=== PATIENT | female | born 1940 | race Caucasian/White ===

== ENCOUNTER 2016-10-05 08:03 | Outpatient (CLI) | payer MEDICARE ==
[2016-10-05] VITALS (16 sets, daily range): BP systolic 114–173; BP diastolic 57–107; PULSE 83–107; RESP 14–35; TEMP 97–98; O2SAT 95–100; Ht 162.6 cm; Wt 93.7 kg
[~2016-10-05] VITALS: Ht 162.6 cm; Wt 93.7 kg
[2016-10-05] MEDS ORDERED: OMEG300C PO (08:09)
[2016-10-05] MEDS ORDERED: MELA3TAB30 PO (08:09)
[2016-10-05] MEDS ORDERED: SIMV20TA6 PO (08:09)
[2016-10-05] MEDS ORDERED: MULT-933 PO (08:09)
--- NOTE | 2016-10-05 08:30 | NUR ---
ADMISSION PT ADMITTED TO ROOM 126 VIA AMBULATION AT 0815. PT IS A&OX3, UP WITH NO ASSIST, LOW FALL UNTIL AFTER PROCEDURE. PT ORIENTED TO ROOM AND BED. PT SIGNED CONSENT FOR SHANITA AND EDUCATED ON THE PROCESS. DAUGHTER IS AT BEDSIDE.
[2016-10-05 08:43] LABS: BASOPHILS % (AUTO) 0.5 % (0-2); EOSINOPHILS # (AUTO) 0.2 T/MM3 (0-0.5); EOSINOPHILS % (AUTO) 2.8 % (0-4); HCT - HEMATOCRIT 43.1 % (36-46); HGB - HEMOGLOBIN 14.4 GM/DL (12-16); LYMPHOCYTES # (AUTO) 1.7 T/MM3 (1-4.8); LYMPHOCYTES % (AUTO) 28.3 % (23-45); MEAN CORPUSCULAR HGB 29.8 UUG (26-34); MEAN CORPUSCULAR HGB CONC(MCHC 33.4 GM/DL (31-37); MEAN CORPUSCULAR VOLUME 89.2 UM3 (80-100); MEAN PLATELET VOLUME 10.2 UM3 (9.4-12.4); MONOCYTES # (AUTO) 0.4 T/MM3 (0-0.8); MONOCYTES % (AUTO) 6.7 % (0-9.0); NEUTROPHILS #(AUTO)-ABSOLUTE 3.7 T/MM3 (1.8-7.7); NEUTROPHILS % (AUTO) 61.7 % (33-66); RED BLOOD COUNT 4.83 M/MM3 (4.00-5.20)
[2016-10-05 08:48] LABS: INR 1.06 (0.76-1.04); PROTHROMBIN TIME 11.6 SEC (9.31-12.49)
[2016-10-05] MEDS ORDERED: SALINE FLUSH 10ml SYRINGE ONE (08:51)
[2016-10-05 08:55] LABS: ALBUMIN 4.3 G/DL (3.5-5.0); ALBUMIN/GLOBULIN RATIO 1.5 RATIO (1.1-2.2); ALKALINE PHOSPHATASE 52 U/L (38-126); ALT (SGPT) 37 U/L (9-52); ANION GAP 12 MEQ/L (5-15); AST (SGOT) 23 U/L (14-36); BUN/CREATININE RATIO 16 RATIO (6-26); CALCIUM 8.7 MG/DL (8.4-10.2); CHLORIDE 109 MEQ/L (98-107); CO2 - CARBON DIOXIDE 27 MEQ/L (22-30); CREATININE 0.7 MG/DL (0.7-1.2); GLOMERULAR FILTRATION RATE 82; GLUCOSE 98 MG/DL (65-110); MAGNESIUM 2.2 MG/DL (1.6-2.3); POTASSIUM 3.7 MEQ/L (3.6-5); SODIUM 148 MEQ/L (134-144); TOTAL PROTEIN 7.1 G/DL (6.3-8.2)
[2016-10-05 09:24] LABS: THYROID STIM HORMONE-TSH 1.65 MIU/L (0.47-4.68)
--- NOTE | 2016-10-05 09:41 | NUR ---
CM CM VISITED PT/DAUGHTER. CM EXPLAINED ROLE AND PROVIDED CONTACT INFORMATION. PT PLANS TO RETURN HOME POST PROCEDURE. PT DENIES NEEDS. PT IS AWARE TO CONTACT CM IF NEEDS ARISE.
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
[2016-10-05] MEDS ORDERED: BISACODYL 5 MG E.C. TABLET PO PRN (13:45)
[2016-10-05] MEDS ORDERED: METOCLOPRAMIDE 10mg/2ml INJECTION IV PRN (13:45)
[2016-10-05] MEDS ORDERED: MAG-AL + SIM LIQUID 30 ML UDC PO PRN (13:45)
[2016-10-05] MEDS ORDERED: BISACODYL 10 MG SUPPOSITORY RECTALLY PRN (13:45)
[2016-10-05] MEDS ORDERED: NITROGLYCERIN 0.4 MG SUBLINGUAL TABLET SL PRN (13:45)
[2016-10-05] MEDS ORDERED: LORAZEPAM 1 MG TABLET PO PRN (13:45)
[2016-10-05] MEDS ORDERED: MILK OF MAGNESIA 30 ML SUSP PO PRN (13:45)
[2016-10-05] MEDS ORDERED: PROMETHAZINE 25 MG INJECTION IV PRN (13:45)
[2016-10-05] MEDS ORDERED: LORAZEPAM 2 MG/ML INJECTION IV PRN (13:45)
[2016-10-05] MEDS ORDERED: ACETAMINOPHEN 325 MG TABLET PO PRN (13:45)
--- NOTE | 2016-10-05 14:59 | NUR ---
DISMISSAL PT DISMISSED TO HOME VIA AMBULATION AT 1457. PT BELONGINGS PACKED, GO HOME INSTRUCTIONS GIVEN, IVL PULLED AND PT DRESSED. PT LEFT WITH DAUGHTER.
[2016-10-05] MEDS ORDERED: MIDAZOLAM 2mg/2ml INJECTION IV ONE (15:14)
[2016-10-05] MEDS ORDERED: FENTANYL 100mcg/2ml INJECTION IV ONE (15:14)
--- NOTE | 2016-10-06 20:26 | TEEF ---
DATE OF PROCEDURE 10/05/2016 INDICATIONS Severe mitral regurgitation. Patient is anticipated to have mitral valve surgery. PROCEDURE After indications, alternatives, risks and benefits of the procedure were fully discussed with the patient in detail, she agreed to proceed. He received IV sedation of Versed and fentanyl. Please refer to nursing notes. She received Cetacaine spray to the oropharynx. I advanced the Omni probe into the stomach. Transgastric, low and mid transesophageal images of good quality were obtained. The procedure was well tolerated. There were no immediate complications. FINDINGS 1. CARDIAC CHAMBERS: The left atrium is enlarged. All other cardiac chambers appear normal in size. The visualized portion of the thoracic aorta exhibits only scattered minor atherosclerotic plaque. No aneurysm or dissection. Interatrial septum appears intact. No demonstrable shunts on color flow Doppler and bubble study. RV size and contractility appear normal. 2. LEFT VENTRICLE: Normal LV size and contractility. Hyperdynamic left ventricle ejection fraction of 80%. 3. VALVES: The mitral valve exhibits redundancy. Very mild sclerosis. Marked prolapse of the posterior leaflet with what appears to be ruptured tendon. This is allowing a highly eccentric jet of mitral regurgitation that is directed anteriorly. On my view the two leaflet coaptation appears adequate to make this picture more of a prolapse rather than a true flail leaflet. The mitral regurgitation jet is clearly severe and wraps around the anterior/anterolateral wall of the left atrium, "hugging" those daly. There is no other significant valvular dysfunction present. Trivial whiff of tricuspid regurgitation is intermittently seen. Trace aortic regurgitation is seen as a tiny central jet. I don't see any vegetation on the mitral valve or any other valves. Left atrial appendage size and contractility appear normal. No demonstrable clots or smoke sign. No pericardial effusion. IMPRESSION 1. Left atrial enlargement. 2. Hyperdynamic left ventricle. Ejection fraction 80%. 3. Severe mitral regurgitation. Highly eccentric jet that is directed anteriorly appears to be related to posterior mitral valve leaflet with a ruptured tendon. 4. Minor sclerotic changes of the aortic valve. 5. Mild mitral annular calcification considered normal for patient's age. 6. Mild irregular atherosclerotic plaque is noted in the aortic arch. [facility]
== END 2016-10-05 14:57 | disposition home or self-care (01) ==
LOC: IMA 08:03 → SRG 08:06 → IMA 14:57
PROVIDERS: ATTEND Internal Medicine Cardiovascular Disease
DX: I34.0 Nonrheumatic mitral (valve) insufficiency (principal); E78.5 Hyperlipidemia, unspecified; F41.1 Generalized anxiety disorder; F41.0 Panic disorder [episodic paroxysmal anxiety]; I70.0 Atherosclerosis of aorta; R93.1 Abnormal findings on diagnostic imaging of heart and coronary circulation
CPT/HCPCS: 36415; 80053; 83735; 84439; 84443; 85025; 85610; 93312; 93320; 93325; J2250; J3010

== ENCOUNTER 2016-10-07 07:26 | Outpatient (CLI) | payer MEDICARE ==
[2016-10-05 08:31] VITALS: BMI 35.5
[2016-10-05 08:47] VITALS: BP 167/78; PULSE 87; RESP 15; TEMP 98; O2SAT 98
[~2016-10-07] VITALS: Ht 162.6 cm; Wt 63.1 kg
[2016-10-07] VITALS (15 sets, daily range): BP systolic 114–162; BP diastolic 56–80; PULSE 71–98; RESP 12–20; TEMP 98–98.2; O2SAT 94–99; Ht 162.6 cm; Wt 63.1 kg
[~2016-10-07 07:26] MED LIST: MULT-933 PO; OMEG300C PO; SIMV20TA6 PO
--- NOTE | 2016-10-07 07:40 | NUR ---
ADMIT PT ADMITTED TO ROOM 122 AT THIS TIME VIA AMBULATORY STATUS. PT ALERT AND ORIENTED AT THIS TIME. PT REPOSITIONED SELF IN BED. WILL CONTINUE TO MONITOR.
[2016-10-07] MEDS ORDERED: SALINE FLUSH 10ml SYRINGE IVF PRN (07:45)
[2016-10-07] MEDS ORDERED: FENTANYL 100mcg/2ml INJECTION ONE (08:23)
[2016-10-07] MEDS ORDERED: VERAPAMIL 5mg/2ml INJECTION IV ONE (08:24)
[2016-10-07] MEDS ORDERED: MIDAZOLAM 2mg/2ml INJECTION ONE ×2 (08:24→10:10)
[2016-10-07] MEDS ORDERED: NITROGLYCERIN 50mg/10ml INJECTION IV ONE (08:24)
[2016-10-07] MEDS ORDERED: HEPARIN 1,000units in NS 500ml BAG IV ONE (08:25)
[2016-10-07] MEDS ORDERED: LIDOCAINE 1% (10mg/ml) 30ml SDV ONE (08:25)
[2016-10-07] MEDS ORDERED: IOHEXOL 350mg/ml 200ml BOTTLE ONE (08:30)
--- NOTE | 2016-10-07 08:30 | NUR ---
TO [facility] PT TRANSPORTED TO [facility] AT THIS TIME VIA CART AND ACCOMPANIED BY BITA GA RN. PT VOIDED PRIOR TO TRANSFER. VITAL SIGNS STABLE ON ROOM AIR. DAUGHTER ANGEL PRESENT UPON TRANSFER. INFORMED CONSENT OBTAINED. WILL CONTINUE TO MONITOR CLOSELY.
[2016-10-07 08:38] LABS: BASOPHILS % (AUTO) 0.4 % (0-2); EOSINOPHILS # (AUTO) 0.1 T/MM3 (0-0.5); EOSINOPHILS % (AUTO) 1.5 % (0-4); HCT - HEMATOCRIT 41.9 % (36-46); HGB - HEMOGLOBIN 14.2 GM/DL (12-16); LYMPHOCYTES # (AUTO) 1.6 T/MM3 (1-4.8); LYMPHOCYTES % (AUTO) 29.3 % (23-45); MEAN CORPUSCULAR HGB 30.7 UUG (26-34); MEAN CORPUSCULAR HGB CONC(MCHC 33.9 GM/DL (31-37); MEAN CORPUSCULAR VOLUME 90.7 UM3 (80-100); MEAN PLATELET VOLUME 10.3 UM3 (9.4-12.4); MONOCYTES # (AUTO) 0.4 T/MM3 (0-0.8); MONOCYTES % (AUTO) 7.3 % (0-9.0); NEUTROPHILS #(AUTO)-ABSOLUTE 3.3 T/MM3 (1.8-7.7); NEUTROPHILS % (AUTO) 61.5 % (33-66); RED BLOOD COUNT 4.62 M/MM3 (4.00-5.20); WBC - WHITE BLOOD COUNT 5.4 T/MM3 (4.5-11.0)
[2016-10-07 08:48] LABS: ALBUMIN 4.3 G/DL (3.5-5.0); ALBUMIN/GLOBULIN RATIO 1.7 RATIO (1.1-2.2); ALKALINE PHOSPHATASE 54 U/L (38-126); ALT (SGPT) 35 U/L (9-52); ANION GAP 10 MEQ/L (5-15); AST (SGOT) 29 U/L (14-36); BUN/CREATININE RATIO 14 RATIO (6-26); CALCIUM 9.1 MG/DL (8.4-10.2); CHLORIDE 108 MEQ/L (98-107); CO2 - CARBON DIOXIDE 27 MEQ/L (22-30); CREATININE 0.8 MG/DL (0.7-1.2); GLOMERULAR FILTRATION RATE 70; GLUCOSE 103 MG/DL (65-110); POTASSIUM 4.1 MEQ/L (3.6-5); SODIUM 145 MEQ/L (134-144); TOTAL PROTEIN 6.8 G/DL (6.3-8.2)
[2016-10-07] MEDS ORDERED: NITROGLYCERIN 0.4 MG SUBLINGUAL TABLET ONE (10:14)
--- NOTE | 2016-10-07 10:43 | NUR ---
ABBEY CM ATTEMPTED TO VISIT PT AT PROCEDURE. CM PROVIDED CONTACT INFORMATION AT BEDSIDE AND WROTE NAME ON BOARD. NURSE AWARE TO CONTACT CM IF NEEDS ARISE.
--- NOTE | 2016-10-07 10:52 | NUR ---
RETURN PT RETURNED TO ROOM 122 AT THIS TIME VIA CART. PT TRANSFERRED SELF FROM CART TO BED. HOB ELEVATED. BED ALARM ON. SIDE RAILS UP X2. DAUGHTER PRESENT IN ROOM UPON RETURN. PT AWAKE AND ALERT. VITAL SIGNS STABLE ON ROOM AIR. WILL CONTINUE TO MONITOR.
[2016-10-07] MEDS ORDERED: NORMAL SALINE 1,000 ML IV SCH (11:00)
[2016-10-07 11:03] LABS: TIDAL VOL.VENT ABG 2 ML (0-1200)
[2016-10-07 11:03] LABS: VBG TOTAL CO2 22 MEQ/L
[2016-10-07] MEDS ORDERED: MAG-AL + SIM LIQUID 30 ML UDC PO PRN ×2 (13:30→13:45)
[2016-10-07] MEDS ORDERED: BISACODYL 10 MG SUPPOSITORY RECTALLY PRN ×2 (13:30→13:45)
[2016-10-07] MEDS ORDERED: METOCLOPRAMIDE 10mg/2ml INJECTION IV PRN ×2 (13:30→13:45)
[2016-10-07] MEDS ORDERED: MORPHINE SULFATE 4 MG SYRINGE IV PRN ×4 (13:30→13:45)
[2016-10-07] MEDS ORDERED: ONDANSETRON 4mg/2ml INJECTION IV PRN ×2 (13:30→13:45)
[2016-10-07] MEDS ORDERED: ATROPINE 1 MG/ML VIAL IV PRN ×2 (13:30→13:45)
[2016-10-07] MEDS ORDERED: LORAZEPAM 2 MG/ML INJECTION IV PRN ×2 (13:30→13:45)
[2016-10-07] MEDS ORDERED: NITROGLYCERIN 0.4 MG SUBLINGUAL TABLET SL PRN ×2 (13:30→13:45)
[2016-10-07] MEDS ORDERED: PROMETHAZINE 25 MG INJECTION IV PRN ×2 (13:30→13:45)
[2016-10-07] MEDS ORDERED: MILK OF MAGNESIA 30 ML SUSP PO PRN ×2 (13:30→13:45)
[2016-10-07] MEDS ORDERED: HYDROCODONE/APAP 5 mg/325 mg TABLET PO PRN ×2 (13:30→13:45)
[2016-10-07] MEDS ORDERED: LORAZEPAM 1 MG TABLET PO PRN (13:30)
[2016-10-07] MEDS ORDERED: ACETAMINOPHEN 325 MG TABLET PO PRN ×2 (13:30→13:45)
[2016-10-07] MEDS ORDERED: BISACODYL 5 MG E.C. TABLET PO PRN ×2 (13:30→13:45)
[2016-10-07] MEDS ORDERED: ATEN25TA PO (13:31)
[2016-10-07] MEDS ORDERED: ASPI-557 PO (13:31)
[2016-10-07] MEDS ORDERED: LORAZEPAM 0.5 MG TABLET PO PRN (13:45)
--- NOTE | 2016-10-07 14:33 | NUR ---
DISCHARGE PT DISCHARGED TO HOME AT THIS TIME IN THE COMPANY OF HER DAUGHTER. AFTER ALL AIR REMOVED FROM PT'S TR BAND AND NO S/S OF BLEEDING FROM RIGHT RADIAL ACCESS SITE, GAUZE AND TEGADERM DRESSING APPLIED TO SITE. SPLINT REMAINS IN PLACE TO RIGHT WRIST. DISCHARGE INSTRUCTIONS INCLUDING DIET, ACTIVITY, MEDICATIONS, REPORTABLE S/S, [facility] TRANS RADIAL HEART CATH INSTRUCTIONS AND FOLLOW UP APPOINTMENTS GIVEN AND REVIEWED WITH PATIENT. NEW PRESCRIPTION FOR ATENOLOL SENT ELECTRONICALLY TO PT'S PREFERRED PHARMACY. PT VERBALIZED UNDERSTANDING OF THESE INSTRUCTIONS. IVL DISCONTINUED. ARMBAND REMOVED.
[2016-10-07] MEDS ORDERED: SIMVASTATIN 20 MG TABLET PO SCH (22:00)
[2016-10-08] MEDS ORDERED: OMEGA-3 ACID ESTERS 1 G CAPSULE PO SCH (09:00)
[2016-10-08] MEDS ORDERED: MULTIVITAMIN PLAIN TABLET PO SCH (09:00)
--- NOTE | 2016-10-08 10:40 | CVPROF ---
DATE 10/07/2016 PROCEDURE PERFORMED Transbrachial right heart catheterization. Transradial left heart catheterization. LV gram. Coronary angiogram. INDICATION Severe mitral regurgitation. The patient has dyslipidemia. NARRATIVE OF PROCEDURE After indications, alternatives, risks and benefits of the procedure were fully discussed with the patient in detail, she agreed to proceed. She was brought to the cardiac cath laboratory, received IV sedation, Versed and fentanyl. Please refer to nursing notes for exact amount given. Injected lidocaine 1% in the right wrist. I inserted a 6-Irish slender sheath. Sidearm was aspirated and flushed. Interarterial drug combo was given per protocol. Went ahead and started off with a [employer] trap catheter. Initially the micropuncture wire stopped in the forearm but going back with the table wire advanced easily without any resistance. Then there was an area of tortuosity in the subclavian artery that remained a problem throughout the procedure. Required using an exchange length wire and, due to catheter shape, changed multiple catheters. Even going back later with a 4-Irish multipurpose catheter, it was difficult to advance over a table wire, so I gave sublingual nitroglycerin to relieve any possible spasm in the arm. That did not help and so I pulled that out and exchanged to an interventional guide, eRAD, with a large lumen. This allowed smooth advancement to the heart. Left heart catheterization and LV gram were performed. Procedure was well tolerated. There was no immediate complication. Multiple projection images were taken to examine carefully the LAD lesion. There was no immediate complication. Procedure was well tolerated. A TR Band was deployed for hemostasis and manual pressure to the brachial venous site. Hemodynamics: LV pressure of 97/0 mmHg. EDP of 2-4 mmHg (gave IV fluid bolus at that point.) RA pressure 4/2 with a mean of 2 mmHg. RV 18/0. EDP of 1. PA 18/7, mean of 11 mmHg. 02 sat of 63%. A/O pressure 127/57, mean of 116 mmHg. PCWP 4/4 with a mean of 4 mmHg. O2 sat of 94% arterial, 63% in the PA. Thi cardiac output calculated at 2.8 L/min with an index of 1.7. . Left main coronary artery is short, large and patent. The LAD is a large caliber vessel, exhibits proximal narrowing, appears angiographically mild to moderate but relatively hazy, so careful examination with multiple projections were obtained. The lesion is angiographically estimated about 50-60%. Diagonal branch is widely patent. A very large codominant left circumflex artery gives origin to a large obtuse marginal branch, multiple OM branches, PLB, PDA, and are free from any significant or occlusive disease. Right coronary artery is a medium caliber codominant vessel, gives origin to an RPDA and a small RPLB branch. It is free from any occlusive disease. LV gram shows hyperdynamic left ventricle, ejection fraction of 80%, normal LV size. Severe mitral regurgitation 4+ is present. IMPRESSION 1. Coronary artery disease as manifested by proximal LAD lesion angiographically mild to moderate. However, it appears hazy, so angiographically estimated at 50-60%. This may be examined further using an IVUS if requested by Dr. Jones. 2. Codominant coronary systems. 3. Hyperdynamic left ventricle, ejection fraction of 80%. 4. Unremarkable right heart catheterization as above with a PA pressure 18/7 and PCWP of 4 mmHg. DISCUSSION AND PLAN Continue with consultation with Dr. Aden Jones to discuss surgery. MIKHAIL
== END 2016-10-07 14:33 | disposition home or self-care (01) ==
LOC: CATH 07:26 → SRG 07:35 → CATH 14:33
PROVIDERS: ATTEND Internal Medicine Cardiovascular Disease
DX: I25.10 Atherosclerotic heart disease of native coronary artery without angina pectoris (principal); I34.0 Nonrheumatic mitral (valve) insufficiency; E78.5 Hyperlipidemia, unspecified; F41.1 Generalized anxiety disorder; R01.1 Cardiac murmur, unspecified; F41.0 Panic disorder [episodic paroxysmal anxiety]; Z87.828 Personal history of other (healed) physical injury and trauma; Z79.899 Other long term (current) drug therapy
CPT/HCPCS: 36415; 36416; 80053; 82803; 85025; 93005; 93460; A9270; C1769; C1893; J1644; J2250; J3010; J3490; J7030; Q9967; 93458